=== PATIENT | female | born 1965 | race Caucasian/White ===

== ENCOUNTER → 2018-11-20 | Outpatient (CLI) | payer OTHER ==
--- NOTE | 2018-11-21 10:59 | MM ---
Reason for exam: screening (asymptomatic). History: Family history of breast cancer in paternal aunt. Physical Findings: A clinical breast exam by your physician is recommended on an annual basis and results should be correlated with mammographic findings. MG Screening Mammo w CAD Bilateral CC and MLO view(s) were taken. XCCL view(s) were taken of the left breast. No prior studies available for comparison. There are scattered fibroglandular densities. There is no discrete abnormality. ASSESSMENT: Negative, BI-RAD 1 RECOMMENDATION: Routine screening mammogram of both breasts in 1 year.
== END | disposition home or self-care (01) ==
LOC: RADMAMWWP 13:02
PROVIDERS: ATTEND Family Medicine
DX: Z12.31 Encounter for screening mammogram for malignant neoplasm of breast (principal)
CPT/HCPCS: 77067

== ENCOUNTER → 2019-12-25 | Outpatient (CLI) | payer OTHER ==
--- NOTE | 2019-12-26 10:11 | MM ---
Reason for exam: screening (asymptomatic). Last mammogram was performed 1 year and 1 month ago. History: Family history of breast cancer in paternal aunt. Physical Findings: A clinical breast exam by your physician is recommended on an annual basis and results should be correlated with mammographic findings. MG Screening Mammo w CAD Bilateral CC and MLO view(s) were taken. Prior study comparison: November 20, 2018, bilateral MG screening mammo w CAD. There are scattered fibroglandular densities. Benign calcifications. No significant changes when compared with prior studies. ASSESSMENT: Benign, BI-RAD 2 RECOMMENDATION: Routine screening mammogram of both breasts in 1 year.
== END | disposition home or self-care (01) ==
LOC: RADMAMWWP 13:23
PROVIDERS: ATTEND Family Medicine
DX: Z12.31 Encounter for screening mammogram for malignant neoplasm of breast (principal); Z80.3 Family history of malignant neoplasm of breast
CPT/HCPCS: 77067

== ENCOUNTER 2020-04-04 13:33 | Emergency (ER) | payer OTHER ==
[2020-04-04] MEDS ORDERED: KETOROLAC 15 MG/ML 1 ML VIAL IVP STA (14:05)
--- NOTE | 2020-04-04 14:06 | ED ---
General Adult HPI - General Chief complaint: Chest Pain Stated complaint: R Side Chest Pain, Poss pulled muscle Time Seen by Provider: 04/04/20 13:47 Source: patient, RN notes reviewed, old records reviewed Mode of arrival: ambulatory Limitations: no limitations - History of Present Illness Initial comments: 54-year-old female presenting with right upper chest pain. Pain is been present for approximately one week although there was an interval of improvement. Pain is worse with movement, worse with cough and deep breathing. Patient denies central radiating chest pain. No history of CAD. No cough. No fever. She does believe she probably muscle in her right chest. - Related Data Home Medications Medication Instructions Recorded Confirmed ALPRAZolam [Xanax] 0.25 mg PO DAILY PRN 10/13/13 10/13/13 Levothyroxine Sodium [Synthroid] 0 mcg PO DAILY 10/13/13 10/13/13 Previous Rx's Medication Instructions Recorded Nitrofurantoin Monohyd/M-Cryst 100 mg PO Q12HR #14 cap 10/13/13 [Macrobid] Ibuprofen [Motrin] 600 mg PO Q8HR PRN #24 tab 04/04/20 Allergies Allergy/AdvReac Type Severity Reaction Status Date / Time No Known Allergies Allergy Verified 04/04/20 13:42 Review of Systems ROS Statement: Those systems with pertinent positive or pertinent negative responses have been documented in the HPI. ROS Other: All systems not noted in ROS Statement are negative. Past Medical History Past Medical History: Diabetes Mellitus Additional Past Medical History / Comment(s): hep c History of Any Multi-Drug Resistant Organisms: None Reported Past Surgical History: Appendectomy, Section, Cholecystectomy, Tubal Ligation Additional Past Surgical History / Comment(s): arm/wrist abscess axilla liver biopsy Past Psychological History: No Psychological Hx Reported Smoking Status: Current every day smoker Past Alcohol Use History: Rare Past Drug Use History: Marijuana General Exam Limitations: no limitations General appearance: alert, in no apparent distress Head exam: Present: atraumatic, normocephalic Eye exam: Present: normal appearance, PERRL ENT exam: Present: normal exam Neck exam: Present: normal inspection. Absent: tenderness, meningismus Respiratory exam: Present: normal lung sounds bilaterally, respiratory distress, chest wall tenderness Cardiovascular Exam: Present: regular rate, normal rhythm GI/Abdominal exam: Present: soft. Absent: distended, tenderness, guarding Extremities exam: Present: normal inspection, normal capillary refill. Absent: pedal edema, calf tenderness Neurological exam: Present: alert, oriented X3, CN II-XII intact. Absent: motor sensory deficit Psychiatric exam: Present: normal affect, normal mood Skin exam: Present: warm, dry, intact. Absent: cyanosis, diaphoretic Course Vital Signs 04/04/20 04/04/20 13:39 13:47 Temperature 61 F L 98 F Pulse Rate 61 Respiratory 20 Rate Blood Pressure 115/72 O2 Sat by Pulse 99 Oximetry EKG Findings - EKG Comments: EKG Findings:: EKG: Normal sinus rhythm, rate of 65, VT interval 132, QRS duration 90, QTC 416, no ST segment elevation. Medical Decision Making - Medical Decision Making 54-year-old female presenting with right upper chest pain. On exam the patient is tender to palpation in the right pectoral muscles, pain is worse with movement and range of motion of the right arm. She did report a component of worsening pain with deep inspiration, workup in bed initiated including EKG wh ich shows sinus rhythm without ST segment elevation, chest x-ray which is negative for pneumothorax or acute cardiopulmonary findings. She has a normal CBC, normal CMP, negative d-dimer, negative troponin. Her history and exam is consistent with a musculoskeletal strain or sprain. After 15 mg of Toradol the patient's pain is completely resolved. She will be prescribed anti- inflammatories and will follow with her primary care physician. - Lab Data Result diagrams: 04/04/20 14:16 04/04/20 14:16 Lab Results 04/04/20 04/04/20 04/04/20 Range/Units 14:16 14:16 14:16 WBC 8.1 (3.8-10.6) k/uL RBC 4.64 (3.80-5.40) m/uL Hgb 14.8 (11.4-16.0) gm/dL Hct 45.3 (34.0-46.0) % MCV 97.8 (80.0-100.0) fL MCH 31.8 (25.0-35.0) pg MCHC 32.5 (31.0-37.0) g/dL RDW 12.7 (11.5-15.5) % Plt Count 315 (150-450) k/uL Neutrophils % 65 % Lymphocytes % 27 % Monocytes % 5 % Eosinophils % 2 % Basophils % 1 % Neutrophils # 5.2 (1.3-7.7) k/uL Lymphocytes # 2.1 (1.0-4.8) k/uL Monocytes # 0.4 (0-1.0) k/uL Eosinophils # 0.2 (0-0.7) k/uL Basophils # 0.1 (0-0.2) k/uL PT 9.7 (9.0-12.0) sec INR 0.9 (<1.2) APTT 25.3 (22.0-30.0) sec D-Dimer 0.21 (<0.60) mg/L FEU Sodium 138 (137-145) mmol/L Potassium 4.2 (3.5-5.1) mmol/L Chloride 108 H (98-107) mmol/L Carbon Dioxide 26 (22-30) mmol/L Anion Gap 4 mmol/L BUN 15 (7-17) mg/dL Creatinine 0.81 (0.52-1.04) mg/dL Est GFR (CKD-EPI)AfAm >90 (>60 ml/min/1.73 sqM) Est GFR (CKD-EPI)NonAf 83 (>60 ml/min/1.73 sqM) Glucose 112 H (74-99) mg/dL Calcium 9.4 (8.4-10.2) mg/dL Magnesium 1.9 (1.6-2.3) mg/dL Total Bilirubin 0.3 (0.2-1.3) mg/dL AST 24 (14-36) U/L ALT 19 (4-34) U/L Alkaline Phosphatase 100 (38-126) U/L Troponin I (0.000-0.034) ng/mL Total Protein 7.2 (6.3-8.2) g/dL Albumin 4.3 (3.5-5.0) g/dL Lipase 527 H (23-300) U/L /30/20 Range/Units 14:16 WBC (3.8-10.6) k/uL RBC (3.80-5.40) m/uL Hgb (11.4-16.0) gm/dL Hct (34.0-46.0) % MCV (80.0-100.0) fL MCH (25.0-35.0) pg MCHC (31.0-37.0) g/dL RDW (11.5-15.5) % Plt Count (150-450) k/uL Neutrophils % % Lymphocytes % % Monocytes % % Eosinophils % % Basophils % % Neutrophils # (1.3-7.7) k/uL Lymphocytes # (1.0-4.8) k/uL Monocytes # (0-1.0) k/uL Eosinophils # (0-0.7) k/uL Basophils # (0-0.2) k/uL PT (9.0-12.0) sec INR (<1.2) APTT (22.0-30.0) sec D-Dimer (<0.60) mg/L FEU Sodium (137-145) mmol/L Potassium (3.5-5.1) mmol/L Chloride (98-107) mmol/L Carbon Dioxide (22-30) mmol/L Anion Gap mmol/L BUN (7-17) mg/dL Creatinine (0.52-1.04) mg/dL Est GFR (CKD-EPI)AfAm (>60 ml/min/1.73 sqM) Est GFR (CKD-EPI)NonAf (>60 ml/min/1.73 sqM) Glucose (74-99) mg/dL Calcium (8.4-10.2) mg/dL Magnesium (1.6-2.3) mg/dL Total Bilirubin (0.2-1.3) mg/dL AST (14-36) U/L ALT (4-34) U/L Alkaline Phosphatase (38-126) U/L Troponin I <0.012 (0.000-0.034) ng/mL Total Protein (6.3-8.2) g/dL Albumin (3.5-5.0) g/dL Lipase (23-300) U/L Disposition Clinical Impression: Atypical chest pain, Strain of right pectoralis muscle Disposition: HOME SELF-CARE Condition: Good Instructions (If sedation given, give patient instructions): Chest Pain (ED) Prescriptions: Ibuprofen [Motrin] 600 mg PO Q8HR PRN #24 tab PRN Reason: Pain Is patient prescribed a controlled substance at d/c from ED?: No Referrals: Tyrese Noriega MD [Primary Care Provider] - 1-2 days Time of Disposition: 15:12
[2020-04-04 14:33] LABS: Basophils # (A) 0.1 k/uL (0-0.2); Basophils % (A) 1 %; Eosinophils # (A) 0.2 k/uL (0-0.7); Eosinophils % (A) 2 %; HCT 45.3 % (34.0-46.0); HGB 14.8 gm/dL (11.4-16.0); Lymphocytes # (A) 2.1 k/uL (1.0-4.8); Lymphocytes % (A) 27 %; MCH 31.8 pg (25.0-35.0); MCHC 32.5 g/dL (31.0-37.0); MCV 97.8 fL (80.0-100.0); Mean Platelet Volume 7.1; Monocytes # (A) 0.4 k/uL (0-1.0); Monocytes % (A) 5 %; Neutrophils # (A) 5.2 k/uL (1.3-7.7); Neutrophils % (A) 65 %; Platelet Count 315 k/uL (150-450); RBC 4.64 m/uL (3.80-5.40); RDW 12.7 % (11.5-15.5); WBC 8.1 k/uL (3.8-10.6)
[2020-04-04 14:43] LABS: ALT 19 U/L (4-34); AST 24 U/L (14-36); African American GFR (CKD) >90 (>60 ml/min/1.73 sqM); Albumin 4.3 g/dL (3.5-5.0); Alkaline Phosphatase 100 U/L (38-126); Anion Gap 4 mmol/L; Blood Urea Nitrogen 15 mg/dL (7-17); Calcium 9.4 mg/dL (8.4-10.2); Carbon Dioxide 26 mmol/L (22-30); Chloride 108 mmol/L (98-107); Glucose 112 mg/dL (74-99); Magnesium 1.9 mg/dL (1.6-2.3); Non-African American GFR(CKD) 83 (>60 ml/min/1.73 sqM); Potassium 4.2 mmol/L (3.5-5.1); Sodium 138 mmol/L (137-145); Total Bilirubin 0.3 mg/dL (0.2-1.3); Total Protein 7.2 g/dL (6.3-8.2)
[2020-04-04 15:02] LABS: D-Dimer 0.21 mg/L FEU (<0.60); INR 0.9 (<1.2); Partial Thromboplastin Time 25.3 sec (22.0-30.0); Prothrombin Time 9.7 sec (9.0-12.0)
--- NOTE | 2020-04-04 15:03 | XR ---
EXAMINATION TYPE: XR chest 2V DATE OF EXAM: 04/04/2020 CLINICAL HISTORY: Chest Pain. TECHNIQUE: Frontal and lateral view of the chest. COMPARISON: None FINDINGS: The cardiomediastinal silhouette is within normal limits for size. Pulmonary vasculature i s normal. There is no focal air space opacity, pleural effusion, or pneumothorax seen. The osseous st ructures are intact. IMPRESSION: No acute cardiopulmonary process.
[2020-04-04 15:20] VITALS: BP 118/70; PULSE 66; RESP 18; TEMP 98
== END 2020-04-04 15:20 | disposition home or self-care (01) ==
LOC: EC 13:33
DX: S29.011A Strain of muscle and tendon of front wall of thorax, initial encounter (principal); R07.89 Other chest pain; F17.200 Nicotine dependence, unspecified, uncomplicated; Z79.890 Hormone replacement therapy; X58.XXXA Exposure to other specified factors, initial encounter
CPT/HCPCS: 36415; 93005; 85379; 83880; 80053; 83690; 83735; 84484; 85025; 85610; 85730; 71046; 99285; 96374; J1885

== ENCOUNTER → 2021-12-23 | Outpatient (CLI) | payer OTHER ==
[2021-12-24 19:52] LABS: HIV 2 AB Non-Reactive (Non-Reactive); HIV AB P24 Non-Reactive (Non-Reactive); HIV P24 AG Non-Reactive (Non-Reactive)
[2021-12-25 05:25] LABS: Herpes simplex I and/or II IgM 1.39 INDEX (<=0.90); Herpes simplex IgG I Ab 15.9 (< or = 0.90); Herpes simplex IgG II Ab 7.82 (< or = 0.90)
== END | disposition home or self-care (01) ==
LOC: LABWHC1 10:57
PROVIDERS: ATTEND Family Medicine
DX: I10 Essential (primary) hypertension (principal); Z79.899 Other long term (current) drug therapy
CPT/HCPCS: 36415; 83036; 84443; 86694; 86695; 86696; 86780; 87390; 87522

== ENCOUNTER → 2022-09-13 | Outpatient (CLI) | payer OTHER ==
--- NOTE | 2022-09-13 11:21 | XR ---
EXAMINATION TYPE: XR foot limited LT DATE OF EXAM: 09/13/2022 COMPARISON: NONE HISTORY: left foot pain TECHNIQUE: Two views are submitted. FINDINGS: The osseous structures are intact. There is no acute fracture or dislocation. Hypertrophic arthrop athy first MTP. Large calcaneal spur. IMPRESSION: 1. No acute fracture or dislocation. If symptoms persist, follow-up exam in 7 to 10 days could be ob tained.
== END | disposition home or self-care (01) ==
LOC: RADXRMAIN 10:21
PROVIDERS: ATTEND Family Medicine
DX: S99.922A Unspecified injury of left foot, initial encounter (principal)

== ENCOUNTER → 2023-07-11 | Outpatient (CLI) | payer OTHER ==
--- NOTE | 2023-07-11 19:37 | CT ---
EXAMINATION TYPE: CT chest w con CT DLP: 317.9 mGycm, Automated exposure control for dose reduction was used. DATE OF EXAM: 07/11/2023 5:20 PM COMPARISON: 06/25/2014. CLINICAL INDICATION:Female, 57 years old with history of R22.32 LOCALIZED SWELLING, MASS AND LUMP, LE FT UP;, lump over left clavicle x 1 month. TECHNIQUE: Multiple axial images were obtained through the chest. Sagittal and coronal reformats were created for review. Contrast used:100 cc mL of Isovue 300 with IV Contrast (None if empty) Oral contrast used: (None if empty) FINDINGS: LUNGS/ PLEURA: The lung parenchyma appears unremarkable. AIRWAY: Patent and unremarkable. HEART: Size within normal limits. MEDIASTINUM: No gross evidence of adenopathy. VASCULATURE: No aortic aneurysm. MUSCULOSKELETAL: No acute osseous abnormalities SOFT TISSUES/LYMPH NODES: There is slight increased adipose tissue just left of the internal jugular vein series 3 image 7 as well ase more lateral series 3 image 5. No solid suspicious masses or organi zing fluid collections. LOWER NECK: No significant findings. UPPER ABDOMEN: Right renal simple appearing cyst. The gallbladder surgically absent. Pancreatic tail 10 mm low-density lesion previously 5 mm in 2015. IMPRESSION: 1. There is slight increased adipose tissue just left of the internal jugular vein series 3 image 7 as well as more lateral series 3 image 5. Finding could correlate with patient's palpable abnormality and represent lipomatous tissue possibly lipomas. 2. Indeterminate pancreatic tail lesion measuring 10 mm previously 5 mm on 06/25/2014. Consider MRI p ancreatic mass protocol surveillance in one year.
== END | disposition home or self-care (01) ==
LOC: RADCTMAIN 16:58
PROVIDERS: ATTEND Family Medicine
DX: R22.32 Localized swelling, mass and lump, left upper limb (principal)
CPT/HCPCS: 71260; Q9967

== ENCOUNTER → 2023-08-19 | Outpatient (CLI) | payer OTHER ==
--- NOTE | 2023-08-20 20:37 | MR ---
EXAMINATION TYPE: MR pancreas wo/w con DATE OF EXAM: 08/19/2023 5:32 PM CLINICAL INDICATION:Female, 57 years old with history of K86.9 DISEASE OF PANCREAS; PHH, Pancreatic l esion, low back pain, COMPARISON: CT scan abdomen from 06/25/2014, 07/11/2023. TECHNIQUE: Multiplanar multi-sequence imaging was performed without contrast. Post contrast imaging was performed. Post IV contrast subtraction images were also submitted for review. IV Contrast: 6.5 cc Gadobutrol FINDINGS: LOWER CHEST: Heart is mildly enlarged for size. ABDOMEN Liver: No evidence for hepatic steatosis or cirrhosis. Gallbladder and Bile ducts: No evidence for ductal dilation, or biliary stricture or evidence of chol edocholithiasis. The gallbladder is within normal limits. Pancreas: No ductal dilation. No evidence for solid mass. High T2 signal lesion in the pancreatic herbie l measuring 9 mm. No abnormal postcontrast enhancement. Spleen: Normal for size. Adrenal glands: Unremarkable. Kidneys: No evidence for obstructive uropathy. No suspicious renal masses. High T2 signal bilateral c ysts. Stomach and Bowel: No evidence for bowel wall thickening or evidence for obstruction. Retroperitoneum/Peritoneum: No evidence of pneumoperitoneum or free fluid. Vasculature: No aortic aneurysm. Musculoskeletal: The osseous structures appear intact. Lymph Nodes: No gross evidence for lymphadenopathy. Abdominal wall: Unremarkable. IMPRESSION: Pancreatic tail cystic lesion most compatible with pseudocyst versus intraductal papillary mucinous n eoplasm. This is mildly increased in size from 2014 where measure 5 mm. Continued surveillance in one year recommended with MRI MRCP with IV contrast.
== END | disposition home or self-care (01) ==
LOC: RADMRIMAIN 16:21
PROVIDERS: ATTEND Family Medicine
DX: K86.9 Disease of pancreas, unspecified (principal); M54.50 Low back pain, unspecified
CPT/HCPCS: 74183; A9585

== ENCOUNTER → 2024-08-17 | Outpatient (CLI) | payer OTHER ==
--- NOTE | 2024-08-18 08:07 | MR ---
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 COMPARISON: MR pancreas 08/19/2023, CT chest 07/11/2023, CT abdomen 06/25/2014. TECHNIQUE: Multiplanar multi-sequence imaging was performed without and with IV contrast.The patient was given 6.5 ccs of Gadobutrol intravenously and dynamic imaging was performed. Post IV contrast gama btraction images were also submitted for review. FINDINGS: LOWER CHEST: No significant findings. ABDOMEN Liver: No evidence for hepatic steatosis or cirrhosis. Diffuse dropout of signal on in phase imaging suggesting iron deposition. Gallbladder and Bile ducts: No evidence for ductal dilation, or biliary stricture or evidence of chol edocholithiasis. The gallbladder is surgically absent. Pancreas: No ductal dilation. No evidence for solid mass. Stable T2 hyperintense/T1 hypointense signa l lesion in the pancreatic tail measuring 9 mm. No internal enhancement. There is similar delayed per ipheral thin wall enhancement. No mural nodularity. No new suspicious lesions. Spleen: Normal for size. Adrenal glands: Unremarkable. Kidneys: No hydronephrosis. No suspicious enhancing renal masses. Stable right mid kidney 2.2 cm thin -walled simple cyst. Stable left lower pole renal 0.6 cm simple cyst. Stomach and Bowel: No evidence for bowel wall thickening or evidence for obstruction. Retroperitoneum/Peritoneum: No evidence of pneumoperitoneum or free fluid. Vasculature: No aortic aneurysm. Musculoskeletal: The osseous structures appear intact. Mild levocurvature of the lumbar spine. Lymph Nodes: No gross evidence for lymphadenopathy. Abdominal wall: Unremarkable. IMPRESSION: Stable pancreatic tail cystic lesion most compatible with pseudocyst versus intraductal papillary muc inous neoplasm. Continued surveillance in one year recommended with MRI abdomen with IV contrast (calzada creatic mass protocol). [facility], , 08/18/2024 8:04 AM
== END | disposition home or self-care (01) ==
LOC: RADMRIMAIN 22:00
PROVIDERS: ATTEND Family Medicine
DX: D49.0 Neoplasm of unspecified behavior of digestive system (principal); K86.2 Cyst of pancreas
CPT/HCPCS: 74183; A9585

== ENCOUNTER → 2024-08-20 | Outpatient (CLI) | payer OTHER ==
--- NOTE | 2024-08-21 07:26 | MM ---
Reason for Exam: Screening (asymptomatic). Last mammogram was performed 4 year(s) and 8 month(s) ago. Patient History: Menarche at age 14. First Full-Term at age 26. Hysterectomy at age 43. Paternal aunt had breast cancer. Risk Values: Ivette 5 year model risk: 1.4%. NCI Lifetime model risk: 7.8%. Prior Study Comparison: 11/20/2018 Bilateral Screening Mammogram, [facility]. 12/25/2019 Bilateral Screening Mammogram, [facility]. Tissue Density: There are scattered areas of fibroglandular density. Findings: Analyzed By CAD. Benign appearing bilateral axillary lymph nodes are redemonstrated. There is occasional scattered small benign-appearing round calcification bilaterally redemonstrated. There is no suspicious group of microcalcifications or new suspicious mass in either breast. Overall Assessment: Benign, BI-RAD 2 Management: Screening Mammogram of both breasts in 1 year. . Patient should continue monthly self-breast exams. A clinical breast exam by your physician is recommended on an annual basis. This exam should not preclude additional follow-up of suspicious palpable abnormalities. Note on Ivette scores and lifetime risk: 1. A Ivette score greater than 3% is considered moderate risk. If this is the case, consider specialist referral to assess eligibility for a risk reducing agent. 2. If overall lifetime risk for the development of breast cancer is 20% or higher, the patient may qualify for future screening with alternating mammogram and breast MRI. [facility], , 08/21/2024 7:23 AM. Electronically signed and approved by: Mane Galvan M.D.
--- NOTE | 2024-08-21 08:03 | BD ---
EXAMINATION TYPE: Axial Bone Density DATE OF EXAM: 08/20/2024 CLINICAL HISTORY: 58 years old Female. ICD-10 CODE: Z78.[address] , Additional Hi story: Height: 60 Weight: 148 FRAX RISK QUESTIONS: Family History (Parent hip fracture): yes History of Fracture in Adulthood: no Secondary Osteoporosis: yes 3. Menopause before 45: yes Current Tobacco Use: yes RISK FACTORS HISTORY OF: Surgery to Spine/Hip(right/left)/Wrist (right/left): no MEDICATIONS: Thyroid Medications: yes Which medication: Levothyroxine How Lon+ years Osteoporosis Medications: no EXAM MEASUREMENTS: Bone mineral densitometry was performed using the [employer] System. Bone mineral density as measured about the Lumbar spine is: ----- L1-L4(G/cm2): 1.211 T Score Values are as follows: ----- L1: -0.9 ----- L2: -0.2 ----- L3: 0.6 ----- L4: 1.2 ----- L1-L4: 0.3 Z Score Values are as follows: ----- L1: 0.1 ----- L2: 0.8 ----- L3: 1.6 ----- L4: 2.2 ----- L1-L4: 1.3 Bone mineral density baseline Bone mineral density about the R hip (g/cm2): 0.978 Bone mineral density about the L hip (g/cm2): 0.950 T Score values are as follows: -----R Neck: -1.3 -----L Neck: -1.5 -----R Total: -0.2 -----L Total: -0.5 Z Score values are as follows: -----R Neck: -0.1 -----L Neck: -0.3 -----R Total: 0.6 -----L Total: 0.3 Bone mineral density baseline FRAX%s: The graph provided illustrates a 7.5% chance for a major osteoporotic fx and a 0.6% chance fo r the hips probability for fx in 10 years time. IMPRESSION: Osteopenia (T Score between -2.5 and -1) femoral neck level in the bilateral hips. There is slightly increased risk of fracture and the patient may be considered for treatment. Re-Screen 2-5 years. NOTE: T-SCORE=SD OF THE YOUNG ADULT MEAN. [facility], , 08/21/2024 8:01 AM
== END | disposition home or self-care (01) ==
LOC: RADMAMWWP 15:37
PROVIDERS: ATTEND Family Medicine
DX: Z12.31 Encounter for screening mammogram for malignant neoplasm of breast (principal); R92.323 Mammographic fibroglandular density, bilateral breasts; M85.89 Other specified disorders of bone density and structure, multiple sites; R92.1 Mammographic calcification found on diagnostic imaging of breast; Z78.0 Asymptomatic menopausal state; Z80.3 Family history of malignant neoplasm of breast
CPT/HCPCS: 77063; 77067; 77080

== ENCOUNTER → 2024-12-24 | Outpatient (CLI) | payer OTHER ==
[2024-12-25 02:17] LABS: HCT 43.4 % (37.2-46.3); HGB 14.0 g/dL (12.0-15.0); MCH 30.4 pg (27.0-32.0); MCHC 32.3 g/dL (32.0-37.0); MCV 94.3 FL (80.0-97.0); NRBC Per 100 WBC 0 X 10*3/uL (0.00-0.01); Platelet Count 283 X 10*3/uL (140-440); RBC 4.60 X 10*6/uL (4.10-5.20); RDW 12.7 % (11.5-14.5); WBC 6.30 X 10*3/uL (4.50-10.00)
[2024-12-25 02:54] LABS: ALT 25 U/L (8-44); AST 30 U/L (13-35); Albumin 4.3 g/dL (3.8-4.9); Albumin/Globulin Ratio 2.05 Ratio (1.60-3.17); Alkaline Phosphatase 97 U/L (41-126); Anion Gap 9.80 mmol/L (4.00-12.00); BUN/Creat Ratio 11.78 Ratio (12.00-20.00); Blood Urea Nitrogen 10.6 mg/dL (9.0-27.0); Calcium 9.4 mg/dL (8.7-10.3); Carbon Dioxide 26.2 mmol/L (21.6-31.8); Chloride 110 mmol/L (96-109); Cholesterol 138.00 mg/dL (0.00-200.00); Globulin 2.1 g/dL (1.6-3.3); Glucose 87 mg/dL (70-110); HDL Cholesterol 48.40 mg/dL (40.00-60.00); LDL Cholesterol,Calculated 72.1 mg/dL (0.0-131.0); Potassium 5.0 mmol/L (3.5-5.5); Sodium 146 mmol/L (135-145); Total Protein 6.4 g/dL (6.2-8.2); Triglycerides 87.30 mg/dL (0.00-149.00); VLDL Calculation 17.46 mg/dL (5.00-40.00)
[2024-12-28 19:00] LABS: ANA Pattern Speckled; ANA Titer 1:640
== END | disposition home or self-care (01) ==
LOC: LABWHC1 15:46
PROVIDERS: ATTEND Family Medicine
DX: Z00.00 Encounter for general adult medical examination without abnormal findings (principal)
CPT/HCPCS: 36415; 80053; 80061; 83036; 84443; 85027; 85652; 86038; 86039